=== PATIENT | female | born 1985 ===

== ENCOUNTER 2019-04-09 01:16 | Emergency (ER) | payer SELFPAY ==
[~2019-04-09] VITALS: Ht 165.1 cm; Wt 97.2 kg
[2019-04-09 01:24] VITALS: BP 168/97; PULSE 100; RESP 20; Ht 165.1 cm; Wt 97.2 kg
== END 2019-04-09 04:04 | disposition left against medical advice (07) ==
LOC: FTE 01:16
DX: Z53.21 Procedure and treatment not carried out due to patient leaving prior to being seen by health care provider (principal)